=== PATIENT | male | born 1970 | race Caucasian/White ===

== ENCOUNTER → 2016-07-07 | Outpatient (CLI) | payer OTHER ==
[~2016-07-07] MED LIST: ACETAMINOPHEN-H1 TA2 PO; CIPRO500 MG PO; CLARITIN10 MG PO; EPI EZ PEN1 MG/ML IM; HYDROCODONE BIT1 T11 PO; KEFLEX500 MG PO; PRILOSEC40 M1 PO; Phenergan25 MG PO; ZOFRAN ODT4 MG SL
== END | disposition home or self-care (01) ==
LOC: CT 08:00
DX: R06.02 Shortness of breath (principal)

== ENCOUNTER 2016-10-28 22:13 | Inpatient (IN) | payer OTHER ==
[~2016-10-28] VITALS: Ht 172.7 cm; Wt 83.2 kg
--- NOTE | ~2016-10-28 | CON ---
[place], [place] REPORT OF CONSULTATION NAME: [facility] MITCHELL [id number] UNIT #: [id number] ROOM: 518 DOCTOR: GARY GUZMAN MD BIRTHDATE: [birth year] DOS: HISTORY OF PRESENT ILLNESS: The patient is a 46-year-old who has presented with chief complaint of 3 weeks of nausea and vomiting. The patient has history of sarcoidosis. The patient has been losing weight of greater than 20 pounds over the past 3 weeks since he has not been able to eat. He was admitted and a panel of blood work was done. Lactic acid was 1.8. CBC, white blood cell 9.4, H and H of 14 and 42. Comprehensive metabolic panel, GFR greater than 30, liver function tests normal, lipase of 443. Troponin within normal limits. CT scan of the abdomen and pelvis has been obtained. No acute process has been identified. Ultrasound of the abdomen and pelvis was done, simple left renal cyst. PAST MEDICAL HISTORY: Associated with renal calculi, renal lithiasis. PAST SURGICAL HISTORY: Appendectomy, lung biopsy. SOCIAL HISTORY: Nonsmoker, nonalcohol consumer. FAMILY HISTORY: Noncontributory. ALLERGIES: No known. MEDICATIONS: List has been reviewed. REVIEW OF SYSTEMS: HEENT: Denies double vision, blurred vision. RESPIRATORY: Denies acute shortness of breath. CARDIOVASCULAR: Denies chest pain. DIGESTIVE SYSTEM: Recurrent nausea, vomiting. NEUROMUSCULOSKELETAL: Benign. PHYSICAL EXAMINATION: VITAL SIGNS: Stable. HEENT: Head is normocephalic, nontraumatic. Mouth and buccal mucosa benign. NECK: Supple. No thyromegaly. No cervical lymphadenopathy. CHEST: Symmetric anatomy, equal expansion. No wheeze, no rhonchi. HEART: Normal sinus rhythm, no gallop, no murmur. ABDOMEN: Soft. No hepato-organomegaly. Bowel sounds present. No pulsatile mass. EXTREMITIES: No cyanosis. No pedal edema. NEUROLOGIC: Alert, oriented to time, place, and person. Sensory, motor intact. Cranial nerves 2-12 intact. IMPRESSION: Recurrent nausea, vomiting, history of sarcoidosis, history of renal calculi nonobstructing, status post history of urological management and lithotripsy. PLAN AND DISCUSSION: We are going to have endoscopic assessment of upper GI done. Multiple biopsy of gastric pouch is going to be performed to ensure that [place], [place] REPORT OF CONSULTATION NAME: ÁNGEL MITCHELL UNIT #: [id number] ROOM: 518 DOCTOR: MEGAN LAGUNA,GARY BIRTHDATE: [birth year] there is no infiltration of sarcoid disease into his gastric pouch. As far as his pancreatic enzyme is concerned, this could be a transient finding or could be appropriate for true pancreatitis subclinical as yet. Workup in progress. Results pending on biopsy reports. GARY GUZMAN MD CM:CONSTR:REPORT OF CONSULTATION 1301 10/30/16 0103 interface
--- NOTE | ~2016-10-28 | O ---
[place], [place] OPERATIVE NOTE NAME: ÁNGEL MITCHELL UNIT #: [id number] ROOM: 518 [facility] [birth year] DOS: GASTROENDOSCOPIC REPORT HISTORY OF PRESENT ILLNESS: A 46-year-old patient who has presented with chief complaint of relentless nausea and vomiting. The patient with a history of sarcoidosis. PROCEDURE: Today's procedure part of investigation is panendoscopy plus multiple biopsies and photographic series. PREMEDICATION: Versed and Diprivan. SCOPE: Olympus forward-viewing gastroscope Q10 video. REPORT: After putting the patient in the left lateral position and after application of lubricant to the scope, the scope was introduced. Thereafter, under direct visualization, I advanced through the length of the esophagus without difficulty. Diffuse esophageal ulcerations, multiple lines extended from esophagogastric junction all the way to nearly cervical esophagus. There is a small hiatal hernia on board. Gastric pouch was entered. Gastritis was noticed. Multiple deep biopsies obtained ruling out sarcoid infiltrate. Duodenal bulb, second and third part within normal limits. The patient was gradually extubated and tolerated the procedure well. IMPRESSION: Gastritis, status post multiple biopsy ruling out sarcoid infiltrate, diffuse ulceration of esophagus all the way to nearly cervical esophagus, status post biopsy, hiatal hernia. PLAN AND DISCUSSION: Aggressive ulcer therapy, Protonix 40 mg IV b.i.d., sucralfate 2 grams slurry q.i.d., antiemetics as well in addition to Reglan 5 mg IV b.i.d. and awaiting clinical response, awaiting healing of the ulceration and improvement of esophageal distress. We are going to start him on ice cream, milk shake, diet to be soft on him at this time and then we will reassess as we go along. We are going to have a serum magnesium and phosphorus obtain on him and electrolytes and follow up on CBC. Thank you very much indeed. As far as his pancreatitis is concerned that I trust it is going to be transient and we are going to have a serum lipase done next day if it is still elevated. [place], [place] OPERATIVE NOTE NAME: ÁNGEL MITCHELL UNIT #: [id number] ROOM: 518 DOCTOR: GARY GUZMAN MD BIRTHDATE: [birth year] GARY GUZMAN MD CM:OPRECORD:OPERATIVE NOTE 1318 1434 GARY GUZMAN MD 10/29/16 1434 interface
[2016-10-28 22:20] VITALS: BP 151/103
[2016-10-28 22:47] VITALS: BP 162/105
[2016-10-28 22:59] LABS: BASO % 0.4 % (0.0-1.0); EOS % 0.3 % (1.0-4.0); HEMATOCRIT 42.3 % (42.0-52.0); HEMOGLOBIN 14.7 g/dl (14.0-18.0); LYMPH # 1.4 10*3/uL (1.3-4.4); LYMPH % 14.9 % (27.0-41.0); MEAN CELL VOLUME 85.8 fl (80.0-94.0); MEAN CORPUSCULAR HGB 29.8 pg (27.0-31.0); MEAN CORPUSCULAR HGB CONC 34.8 g/dl (33.0-37.0); MEAN PLATELET VOLUME 8.7 fl (9.6-12.3); MONO # 0.3 10*3/uL (0.1-1.0); MONO % 3.5 % (3.0-9.0); NEUT # 7.6 10*3/uL (2.3-7.9); NEUT % 80.7 % (47.0-73.0); PLATELET COUNT AUTOMATED 262 10*3/uL (130-400); RED BLOOD COUNT 4.93 10*6/uL (4.50-5.90); RED CELL DISTRI WIDTH 12.1 % (0-14.5); WHITE BLOOD COUNT 9.4 10*3/uL (4.8-10.8)
[2016-10-28 23:09] LABS: ACT PARTIAL THROMBO TIME 26.5 SECONDS (20.8-31.5)
[2016-10-28 23:14] LABS: ALBUMIN 3.7 gm/dl (3.1-4.5); ALKALINE PHOSPHATASE 97 U/L (45-117); BUN 16 mg/dl (7-24); CHLORIDE 106 mmol/L (98-107); LIPASE 443 U/L (73-393); MAGNESIUM 2.1 mg/dL (1.5-2.1); POTASSIUM 3.5 mmol/L (3.5-5.1); SGOT/AST 13 IU/L (3-35); SGPT/ALT 24 U/L (12-78); SODIUM 139 mmol/L (136-145); TOTAL PROTEIN 7.4 gm/dL (6.4-8.2)
[2016-10-28 23:17] LABS: TROPONIN I < 0.015 ng/ml (<0.045)
[2016-10-28 23:38] LABS: BILIRUBIN NEGATIVE (NEGATIVE); BLOOD TRACE-LYSED (NEGATIVE); CLARITY CLOUDY (CLEAR); COLOR YELLOW (YELLOW); GLUCOSE NEGATIVE (NEGATIVE); KETONE TRACE (NEGATIVE); LEUKO ESTERASE NEGATIVE (NEGATIVE); NITRITE NEGATIVE (NEGATIVE); UROBILINOGEN 0.2 E.U./dl (0.2-1.0)
[2016-10-28 23:45] LABS: BACTERIA TRACE
[2016-10-28 23:46] LABS: WBC 0-2 wbc/hpf (0-5)
[2016-10-29] VITALS (9 sets, daily range): BP systolic 99–139; BP diastolic 60–87
[2016-10-29] MEDS ORDERED: LEVAQUIN500 M2 PO (04:15)
[2016-10-29] MEDS ORDERED: CARAFATE1 G1 PO (04:15)
[2016-10-29] MEDS ORDERED: BENTYL10 MG PO (04:16)
[2016-10-30] VITALS: BP 112/70
[2016-10-30 06:29] LABS: BASO % 0.6 % (0.0-1.0); EOS # 0.2 10*3/uL (0.0-0.4); HEMATOCRIT 36.8 % (42.0-52.0); LYMPH # 1.6 10*3/uL (1.3-4.4); LYMPH % 33.9 % (27.0-41.0); MEAN CORPUSCULAR HGB 30.3 pg (27.0-31.0); MEAN PLATELET VOLUME 8.6 fl (9.6-12.3); MONO # 0.5 10*3/uL (0.1-1.0); MONO % 9.4 % (3.0-9.0); NEUT # 2.5 10*3/uL (2.3-7.9); NEUT % 51.9 % (47.0-73.0); PLATELET COUNT AUTOMATED 208 10*3/uL (130-400); RED BLOOD COUNT 4.12 10*6/uL (4.50-5.90); RED CELL DISTRI WIDTH 12.5 % (0-14.5); WHITE BLOOD COUNT 4.8 10*3/uL (4.8-10.8)
[2016-10-30 06:46] LABS: HEMOGLOBIN 12.5 g/dl (14.0-18.0); MEAN CELL VOLUME 89.3 fl (80.0-94.0)
[2016-10-30 06:54] LABS: ALBUMIN 2.9 gm/dl (3.1-4.5); ALKALINE PHOSPHATASE 79 U/L (45-117); BUN 12 mg/dl (7-24); CHLORIDE 109 mmol/L (98-107); CREATININE 0.89 mg/dL (0.70-1.30); LIPASE 392 U/L (73-393); MAGNESIUM 2.3 mg/dL (1.5-2.1); PHOSPHOROUS 2.8 mg/dL (2.5-4.9); POTASSIUM 3.7 mmol/L (3.5-5.1); SGOT/AST 15 IU/L (3-35); SGPT/ALT 20 U/L (12-78); SODIUM 143 mmol/L (136-145); TOTAL PROTEIN 5.9 gm/dL (6.4-8.2)
[2016-10-30 08:00] VITALS: BP 118/74
[2016-10-30] MEDS ORDERED: REGLAN5 MG PO (12:48)
== END 2016-10-30 13:30 | disposition home or self-care (01) | DRG 381 ==
LOC: ED 22:13 → EDHOLD 10-29 01:52 → 5E 10-29 01:52
PROVIDERS: Emergency Medicine Emergency Medical Services; Family Medicine; ADMIT Emergency Medicine
PROC: 0DB58ZX Excision of Esophagus, Via Natural or Artificial Opening Endoscopic, Diagnostic (ICD-10-PCS; principal; 2016-10-29)
PROC: 0DB68ZX Excision of Stomach, Via Natural or Artificial Opening Endoscopic, Diagnostic (ICD-10-PCS; 2016-10-29)
DX: K22.10 Ulcer of esophagus without bleeding (principal); E44.0 Moderate protein-calorie malnutrition; D86.0 Sarcoidosis of lung; K44.9 Diaphragmatic hernia without obstruction or gangrene; K29.70 Gastritis, unspecified, without bleeding; E86.0 Dehydration; R03.0 Elevated blood-pressure reading, without diagnosis of hypertension; N20.0 Calculus of kidney; Z79.899 Other long term (current) drug therapy; Z90.49 Acquired absence of other specified parts of digestive tract; Z83.3 Family history of diabetes mellitus; Z84.89 Family history of other specified conditions

== ENCOUNTER → 2016-11-26 | Outpatient (CLI) | payer OTHER ==
[~2016-11-26] MED LIST changes: +BENTYL10 MG PO; +CARAFATE1 G1 PO; +LEVAQUIN500 M2 PO; +REGLAN5 MG PO
== END | disposition home or self-care (01) ==
LOC: NM 11-20 07:00
DX: R10.9 Unspecified abdominal pain (principal); R11.0 Nausea

== ENCOUNTER → 2021-02-22 | Outpatient (CLI) | payer OTHER | END | disposition home or self-care (01) | LOC: COVID19 15:04 | PROVIDERS: ATTEND Family Medicine | DX: U07.1 COVID-19 (principal) ==